=== PATIENT | male | born 1985 | race Caucasian/White ===

== ENCOUNTER 2016-11-23 20:54 | Inpatient (IN) | payer MEDICAID ==
[~2016-11-23] VITALS: Ht 177.8 cm; Wt 85.3 kg
[~2016-11-23 20:54] MED LIST: QUET300T2 PO
[2016-11-23] MEDS ORDERED: INFLUENZA VIRUS VACCINE QVS 2016-17 (3YR+)/PF 60 MCG/0.5 ML SYRINGE IM ONE (21:45)
[2016-11-23 22:09] VITALS: BP 148/81
[2016-11-23] MEDS ORDERED: DIPH25 PO (22:15)
[2016-11-23] MEDS ORDERED: RISP2 PO (22:15)
[2016-11-24] MEDS: LORazepam 2 MG TABLET PO PRN ×2 (00:21→17:27)
[2016-11-24] MEDS: ZOLPIDEM TARTRATE 10 MG TABLET PO PRN (00:21)
[2016-11-24 00:22] VITALS: BP 120/73
[2016-11-24] MEDS ORDERED: LORazepam 2 MG/ML VIAL ONE (00:49)
[2016-11-24] MEDS ORDERED: DiphenhydrAMINE HCL 50 MG/ML VIAL ONE (00:49)
[2016-11-24] MEDS ORDERED: HALOPERIDOL LACTATE 5 MG/ML VIAL ONE (00:50)
[2016-11-24] MEDS ORDERED: LORazepam 2 MG/ML VIAL IM ONE (01:00)
[2016-11-24] MEDS ORDERED: HALOPERIDOL LACTATE 5 MG/ML VIAL IM ONE (01:00)
[2016-11-24] MEDS ORDERED: DiphenhydrAMINE HCL 50 MG/ML VIAL IM ONE (01:00)
[2016-11-24 07:58] LABS: BASOPHILS % (AUTO) 0.6 % (0.0-2.0); EOSINOPHILS % (AUTO) 6.1 % (1.0-6.0); HEMATOCRIT 36.5 % (41-53); HEMOGLOBIN 12.1 g/dL (13.5-17.5); LYMPHOCYTES # (AUTO) 1.8 K/uL (1.0-4.8); LYMPHOCYTES % (AUTO) 18.7 % (22.0-44.0); MEAN CORPUSCULAR HEMOGLOBIN 29.5 pg (26.0-34.0); MEAN CORPUSCULAR HGB CONC 33.3 G/dL (31.0-37.0); MEAN CORPUSCULAR VOLUME 89 fL (80-100); NEUTROPHILS % (AUTO) 63.6 % (40.0-70.0); PLATELET COUNT (AUTO) 235 K/uL (150-450); RED BLOOD CELL COUNT(AUTO) 4.11 MIL/uL (4.50-5.90); RED CELL DISTRIBUTION WIDTH 12.4 % (11.5-14.5); WHITE BLOOD COUNT (AUTO) 9.5 K/uL (4.5-11.0)
[2016-11-24 08:04] LABS: HEMOGLOBIN A1C 5.1 % (4.5-6.2)
[2016-11-24 08:15] VITALS: BP 102/60
[2016-11-24 08:21] LABS: ALANINE AMINOTRANSFERASE 34 U/L (12-78); ALBUMIN 2.8 g/dL (3.4-5.0); ANION GAP 6 mmol/L (8-16); ASPARTATE AMINOTRANSFERASE 26 U/L (15-37); BILIRUBIN,TOTAL 0.3 mg/dL (0.1-1.0); CALCIUM, TOTAL 8.1 mg/dL (8.8-10.5); CARBON DIOXIDE 29 mmol/L (22-29); CHLORIDE 101 mmol/L (98-107); CHOL/HDL RATIO 3.8 (4.2-7.3); CREATININE 0.94 mg/dL (0.60-1.30); GLOMERULAR FILTR. RATE CALC > 60 mL/min (>60); POTASSIUM 3.4 mmol/L (3.5-5.1); SODIUM SERUM 136 mmol/L (136-145); TOTAL PROTEIN, SERUM 6.6 g/dL (6.4-8.2); UREA NITROGEN, BLOOD 13 mg/dL (7-18)
[2016-11-24] MEDS ORDERED: POTASSIUM CHLORIDE 20 MEQ ER TABLET PO ONE (10:15)
[2016-11-24] MEDS ORDERED: IBUPROFEN 400 MG TABLET PO PRN (12:45)
[2016-11-24] MEDS ORDERED: ACETAMINOPHEN 325 MG TABLET PO PRN (12:45)
[2016-11-24 16:45] VITALS: BP 121/69
[2016-11-24] MEDS: FERROUS SULFATE 325 MG EC TABLET PO SCH (17:27)
[2016-11-24] MEDS: OLANZapine 5 MG TABLET PO SCH (22:12)
[2016-11-25 06:22] VITALS: BP 124/73
[2016-11-25] MEDS: FERROUS SULFATE 325 MG EC TABLET PO SCH ×3 (06:52→17:32)
[2016-11-25 08:14] VITALS: BP 114/66
[2016-11-25] MEDS: FLUoxetine HCL 20 MG CAPSULE PO SCH (09:40)
[2016-11-25] MEDS: LORazepam 2 MG TABLET PO PRN (09:41)
[2016-11-25 12:34] LABS: CHOL/HDL RATIO 4.6 (4.2-7.3)
[2016-11-25 17:08] VITALS: BP 111/67
[2016-11-25] MEDS: OLANZapine 5 MG TABLET PO SCH (20:32)
[2016-11-26 00:28] VITALS: BP 97/62
[2016-11-26] MEDS: FERROUS SULFATE 325 MG EC TABLET PO SCH ×3 (06:11→16:30)
[2016-11-26 08:15] VITALS: BP 101/57
[2016-11-26] MEDS: FLUoxetine HCL 20 MG CAPSULE PO SCH (09:33)
[2016-11-26 16:15] VITALS: BP 115/67
[2016-11-26] MEDS: ZOLPIDEM TARTRATE 10 MG TABLET PO PRN (20:58)
[2016-11-26] MEDS: OLANZapine 5 MG TABLET PO SCH (20:59)
[2016-11-27] MEDS: FERROUS SULFATE 325 MG EC TABLET PO SCH ×3 (06:44→17:18)
[2016-11-27 06:53] VITALS: BP 122/86
[2016-11-27 08:15] VITALS: BP 107/58
[2016-11-27] MEDS: FLUoxetine HCL 20 MG CAPSULE PO SCH (09:40)
[2016-11-27 16:00] VITALS: BP 132/80
[2016-11-27] MEDS: LORazepam 2 MG TABLET PO PRN (17:18)
[2016-11-27] MEDS: OLANZapine 5 MG TABLET PO SCH (20:41)
[2016-11-28] MEDS: FERROUS SULFATE 325 MG EC TABLET PO SCH ×3 (06:29→16:47)
[2016-11-28 08:17] LABS: APPEARANCE,URINE CLOUDY (CLEAR); GLUCOSE, URINE (UA) NEGATIVE (NEGATIVE); KETONES,URINE NEGATIVE (NEGATIVE); LEUKOCYTE ESTERASE ,URINE LARGE (NEGATIVE); OCCULT BLOOD,URINE LARGE (NEGATIVE); PH,URINE 6.5 (5.0-8.0); PROTEIN,URINE POS 1+ (NEGATIVE)
[2016-11-28 08:31] VITALS: BP 94/55
[2016-11-28 08:44] LABS: ADD UA MICROSCOPIC YES
[2016-11-28 08:45] LABS: AMORPHOUS SEDIMENT,UR Moderate /LPF (None Seen)
[2016-11-28] MEDS: LORazepam 2 MG TABLET PO PRN (09:39)
[2016-11-28] MEDS: FLUoxetine HCL 20 MG CAPSULE PO SCH (09:39)
[2016-11-28 16:14] VITALS: BP 113/67
[2016-11-28] MEDS: CIPROFLOXACIN HCL 500 MG TABLET PO SCH (16:47)
[2016-11-28] MEDS: OLANZapine 5 MG TABLET PO SCH (20:44)
[2016-11-29] MEDS: FERROUS SULFATE 325 MG EC TABLET PO SCH ×3 (07:01→17:19)
[2016-11-29 07:16] VITALS: BP 102/63
[2016-11-29 08:14] VITALS: BP 118/62
[2016-11-29] MEDS: FLUoxetine HCL 20 MG CAPSULE PO SCH (08:59)
[2016-11-29] MEDS: CIPROFLOXACIN HCL 500 MG TABLET PO SCH ×2 (09:00→17:19)
[2016-11-29] MEDS: LORazepam 2 MG TABLET PO PRN ×2 (09:00→17:20)
[2016-11-29 16:52] VITALS: BP 118/70
[2016-11-29] MEDS: OLANZapine 5 MG TABLET PO SCH (20:46)
[2016-11-30] MEDS: FERROUS SULFATE 325 MG EC TABLET PO SCH ×3 (06:14→16:44)
[2016-11-30 07:07] VITALS: BP 123/74
[2016-11-30 08:15] VITALS: BP 100/54
[2016-11-30] MEDS: FLUoxetine HCL 20 MG CAPSULE PO SCH (09:21)
[2016-11-30] MEDS: CIPROFLOXACIN HCL 500 MG TABLET PO SCH ×2 (09:21→16:44)
[2016-11-30] MEDS: LORazepam 2 MG TABLET PO PRN (14:23)
[2016-11-30 16:18] VITALS: BP 124/75
[2016-11-30] MEDS: OLANZapine 5 MG TABLET PO SCH (20:26)
[2016-12-01 06:44] VITALS: BP 106/62
[2016-12-01] MEDS: FERROUS SULFATE 325 MG EC TABLET PO SCH ×2 (06:44→12:38)
[2016-12-01 08:28] LABS: APPEARANCE,URINE CLEAR (CLEAR); GLUCOSE, URINE (UA) NEGATIVE (NEGATIVE); KETONES,URINE NEGATIVE (NEGATIVE); LEUKOCYTE ESTERASE ,URINE MODERATE (NEGATIVE); OCCULT BLOOD,URINE NEGATIVE (NEGATIVE); PH,URINE 6.5 (5.0-8.0); PROTEIN,URINE NEGATIVE (NEGATIVE)
[2016-12-01 08:37] VITALS: BP 107/69
[2016-12-01 08:42] LABS: ADD UA MICROSCOPIC YES
[2016-12-01] MEDS: CIPROFLOXACIN HCL 500 MG TABLET PO SCH (08:45)
[2016-12-01] MEDS: FLUoxetine HCL 20 MG CAPSULE PO SCH (08:45)
[2016-12-01 09:47] LABS: RBC,URINE 0-2 /HPF (0-2); SQUAMOUS EPITHELIAL CELL,UR Few /LPF (None Seen)
[2016-12-01] MEDS: LORazepam 2 MG TABLET PO PRN (12:38)
[2016-12-01] MEDS ORDERED: FERR-89 PO (13:14)
[2016-12-01] MEDS ORDERED: FLUO-191 PO (13:14)
[2016-12-01] MEDS ORDERED: OLAN5TAB2 PO (13:14)
[2016-12-01] MEDS ORDERED: CIPR-278 PO (13:14)
== END 2016-12-01 14:39 | disposition home or self-care (01) | DRG 751 ==
LOC: EDSTATUS 21:11 → B3A 21:34
PROVIDERS: ADMIT Psychiatry & Neurology Child & Adolescent Psychiatry; ATTEND Psychiatry & Neurology Child & Adolescent Psychiatry
DX: F33.2 Major depressive disorder, recurrent severe without psychotic features (principal); R45.851 Suicidal ideations; F15.20 Other stimulant dependence, uncomplicated; F41.9 Anxiety disorder, unspecified; F60.3 Borderline personality disorder; F25.9 Schizoaffective disorder, unspecified; E87.6 Hypokalemia; D64.9 Anemia, unspecified; F10.10 Alcohol abuse, uncomplicated; Z71.41 Alcohol abuse counseling and surveillance of alcoholic; Z71.51 Drug abuse counseling and surveillance of drug abuser; Z28.21 Immunization not carried out because of patient refusal; Z62.819 Personal history of unspecified abuse in childhood
CPT/HCPCS: 80307; 83036; 84132; 84439; 84443; 87086; 90471; J1200; J1630; J2060

== ENCOUNTER 2017-01-11 14:53 | Inpatient (IN) | payer MEDICAID ==
[~2017-01-11] VITALS: Ht 180.3 cm; Wt 81.6 kg
[~2017-01-11 14:53] MED LIST changes: +CIPR-278 PO; +FERR-89 PO; +FLUO-191 PO; +OLAN5TAB2 PO; -QUET300T2 PO
[2017-01-11] MEDS ORDERED: HALOPERIDOL 5 MG TABLET PO PRN (16:30)
[2017-01-11] MEDS ORDERED: LORazepam 2 MG TABLET PO PRN (16:30)
[2017-01-11] MEDS ORDERED: INFLUENZA VIRUS VACCINE QVS 2016-17 (3YR+)/PF 60 MCG/0.5 ML SYRINGE IM ONE (16:30)
[2017-01-11] MEDS ORDERED: ZOLPIDEM TARTRATE 10 MG TABLET PO PRN (16:30)
[2017-01-11] MEDS ORDERED: DiphenhydrAMINE HCL 50 MG/ML VIAL IM ONE (16:45)
[2017-01-11] MEDS ORDERED: LORazepam 2 MG/ML VIAL IM ONE (16:45)
[2017-01-11] MEDS ORDERED: HALOPERIDOL LACTATE 5 MG/ML VIAL IM ONE (16:45)
[2017-01-11 17:05] VITALS: BP 118/85
[2017-01-12] MEDS: FERROUS SULFATE 325 MG EC TABLET PO SCH ×3 (06:36→16:18)
[2017-01-12 07:15] VITALS: BP 106/77
[2017-01-12 08:39] VITALS: BP 112/62
[2017-01-12 16:00] VITALS: BP 114/65
[2017-01-12] MEDS ORDERED: ACETAMINOPHEN 325 MG TABLET PO PRN (22:30)
[2017-01-12] MEDS ORDERED: IBUPROFEN 400 MG TABLET PO PRN (22:30)
[2017-01-13] MEDS: FERROUS SULFATE 325 MG EC TABLET PO SCH ×3 (06:35→17:05)
[2017-01-13 06:56] VITALS: BP 121/68
[2017-01-13 08:34] LABS: BASOPHILS % (AUTO) 0.4 % (0.0-2.0); HEMATOCRIT 44.5 % (41-53); HEMOGLOBIN 14.7 g/dL (13.5-17.5); LYMPHOCYTES % (AUTO) 25.6 % (22.0-44.0); MEAN CORPUSCULAR HGB CONC 33.1 G/dL (31.0-37.0); MEAN CORPUSCULAR VOLUME 88 fL (80-100); MONOCYTES # (AUTO) 0.5 K/uL (0.1-1.0); MONOCYTES % (AUTO) 6.4 % (2.0-9.0); NEUTROPHILS # (AUTO) 5.2 K/uL (1.8-7.7); NEUTROPHILS % (AUTO) 65.6 % (40.0-70.0); PLATELET COUNT (AUTO) 267 K/uL (150-450); RED BLOOD CELL COUNT(AUTO) 5.08 MIL/uL (4.50-5.90); RED CELL DISTRIBUTION WIDTH 13.8 % (11.5-14.5); WHITE BLOOD COUNT (AUTO) 7.9 K/uL (4.5-11.0)
[2017-01-13 08:45] VITALS: BP 109/62
[2017-01-13 08:50] LABS: HEMOGLOBIN A1C 5.4 % (4.5-6.2)
[2017-01-13 08:55] LABS: ALANINE AMINOTRANSFERASE 26 U/L (12-78); ALBUMIN 3.8 g/dL (3.4-5.0); ANION GAP 6 mmol/L (8-16); ASPARTATE AMINOTRANSFERASE 19 U/L (15-37); BILIRUBIN,TOTAL 0.7 mg/dL (0.1-1.0); CALCIUM, TOTAL 8.5 mg/dL (8.8-10.5); CARBON DIOXIDE 31 mmol/L (22-29); CHLORIDE 101 mmol/L (98-107); CHOL/HDL RATIO 3.4 (4.2-7.3); CREATININE 0.87 mg/dL (0.60-1.30); GLOMERULAR FILTR. RATE CALC > 60 mL/min (>60); POTASSIUM 4.2 mmol/L (3.5-5.1); SODIUM SERUM 138 mmol/L (136-145); THYROID STIMULATING HORMONE 0.76 uIU/mL (0.36-3.74); UREA NITROGEN, BLOOD 10 mg/dL (7-18)
[2017-01-13] MEDS: BENZTROPINE MESYLATE 0.5 MG TABLET PO SCH ×2 (09:12→17:05)
[2017-01-13] MEDS: HALOPERIDOL 5 MG TABLET PO SCH ×2 (09:12→17:05)
[2017-01-13 16:20] VITALS: BP 117/68
[2017-01-14] MEDS: FERROUS SULFATE 325 MG EC TABLET PO SCH ×3 (06:22→17:28)
[2017-01-14 07:07] VITALS: BP 114/60
[2017-01-14] MEDS: BENZTROPINE MESYLATE 0.5 MG TABLET PO SCH ×2 (09:20→17:28)
[2017-01-14] MEDS: HALOPERIDOL 5 MG TABLET PO SCH ×2 (09:20→17:28)
[2017-01-14 09:49] VITALS: BP 116/67
[2017-01-14 16:05] VITALS: BP 119/71
[2017-01-15] MEDS: FERROUS SULFATE 325 MG EC TABLET PO SCH ×3 (06:14→16:40)
[2017-01-15 06:18] VITALS: BP 133/77
[2017-01-15 08:15] VITALS: BP 105/63
[2017-01-15] MEDS: HALOPERIDOL 5 MG TABLET PO SCH ×2 (09:58→16:40)
[2017-01-15] MEDS: BENZTROPINE MESYLATE 0.5 MG TABLET PO SCH ×2 (09:58→16:40)
[2017-01-15 16:04] VITALS: BP 116/70
[2017-01-16] MEDS: FERROUS SULFATE 325 MG EC TABLET PO SCH ×3 (06:14→16:45)
[2017-01-16 06:50] VITALS: BP 104/60
[2017-01-16] MEDS: FLUoxetine HCL 20 MG CAPSULE PO SCH (08:36)
[2017-01-16] MEDS: HALOPERIDOL 5 MG TABLET PO SCH ×2 (08:37→16:45)
[2017-01-16] MEDS: BENZTROPINE MESYLATE 0.5 MG TABLET PO SCH ×2 (08:39→16:45)
[2017-01-16 08:43] VITALS: BP 106/67
[2017-01-16 16:00] VITALS: BP 108/58
[2017-01-17] MEDS: FERROUS SULFATE 325 MG EC TABLET PO SCH ×3 (06:34→17:04)
[2017-01-17 06:54] VITALS: BP 118/71
[2017-01-17 08:13] VITALS: BP 100/60
[2017-01-17] MEDS: FLUoxetine HCL 20 MG CAPSULE PO SCH (10:03)
[2017-01-17] MEDS: BENZTROPINE MESYLATE 0.5 MG TABLET PO SCH ×2 (10:04→17:04)
[2017-01-17] MEDS: HALOPERIDOL 5 MG TABLET PO SCH ×2 (10:04→17:04)
[2017-01-17 16:00] VITALS: BP 102/67
[2017-01-18] MEDS: FERROUS SULFATE 325 MG EC TABLET PO SCH ×2 (06:27→13:16)
[2017-01-18 07:06] VITALS: BP 115/75
[2017-01-18 08:27] VITALS: BP 103/64
[2017-01-18] MEDS: FLUoxetine HCL 20 MG CAPSULE PO SCH (10:08)
[2017-01-18] MEDS: BENZTROPINE MESYLATE 0.5 MG TABLET PO SCH (10:08)
[2017-01-18] MEDS: HALOPERIDOL 5 MG TABLET PO SCH (10:09)
[2017-01-18] MEDS ORDERED: BENZ0.5T6 PO (10:41)
[2017-01-18] MEDS ORDERED: HALO.5 PO (10:41)
[2017-01-18] MEDS ORDERED: FLUO20CA30 PO (10:41)
== END 2017-01-18 13:49 | disposition home or self-care (01) | DRG 750 ==
LOC: B3A 16:27
PROVIDERS: ADMIT Psychiatry & Neurology Psychiatry; ATTEND Psychiatry & Neurology Psychiatry
DX: F25.0 Schizoaffective disorder, bipolar type (principal); R45.851 Suicidal ideations; F15.20 Other stimulant dependence, uncomplicated; D64.9 Anemia, unspecified; F17.210 Nicotine dependence, cigarettes, uncomplicated; Z62.819 Personal history of unspecified abuse in childhood; F10.10 Alcohol abuse, uncomplicated; Z71.41 Alcohol abuse counseling and surveillance of alcoholic; Z59.0 Homelessness; Z28.21 Immunization not carried out because of patient refusal
CPT/HCPCS: 83036; 84439; 84443; 90471; J1200; J1630; J2060

== ENCOUNTER 2017-01-23 02:26 | Emergency (ER) | payer MEDICAID, OTHER ==
[~2017-01-23] VITALS: Ht 177.8 cm; Wt 84.1 kg
[~2017-01-23 02:26] MED LIST changes: +BENZ0.5T6 PO; -CIPR-278 PO; -FERR-89 PO; +FERS325 PO; +FLUO20CA30 PO; +HALO.5 PO; -OLAN5TAB2 PO
[2017-01-23 04:03] VITALS: BP 123/80
== END 2017-01-23 04:05 | disposition home or self-care (01) ==
LOC: EMS 02:27
DX: K40.90 Unilateral inguinal hernia, without obstruction or gangrene, not specified as recurrent (principal); F20.0 Paranoid schizophrenia; F31.9 Bipolar disorder, unspecified; F17.200 Nicotine dependence, unspecified, uncomplicated
CPT/HCPCS: 99281; 99406

== ENCOUNTER 2018-02-27 16:46 | Inpatient (IN) | payer MEDICAID, OTHER ==
[~2018-02-27] VITALS: Ht 180.3 cm; Wt 85.7 kg
[~2018-02-27 16:46] MED LIST changes: +BENZ0.5T44 PO; -BENZ0.5T6 PO; +FERR-89 PO; -FERS325 PO; -FLUO-191 PO
[2018-02-27 18:57] LABS: BASOPHILS % (AUTO) 0.7 % (0.0-2.0); EOSINOPHILS % (AUTO) 3.8 % (1.0-6.0); HEMATOCRIT 40.8 % (41-53); HEMOGLOBIN 14.4 g/dL (13.5-17.5); LYMPHOCYTES # (AUTO) 2.3 K/uL (1.0-4.8); LYMPHOCYTES % (AUTO) 39.7 % (22.0-44.0); MEAN CORPUSCULAR HEMOGLOBIN 31.4 pg (26.0-34.0); MEAN CORPUSCULAR HGB CONC 35.3 G/dL (31.0-37.0); MEAN CORPUSCULAR VOLUME 89 fL (80-100); MONOCYTES # (AUTO) 0.5 K/uL (0.1-1.0); MONOCYTES % (AUTO) 8.7 % (2.0-9.0); NEUTROPHILS # (AUTO) 2.7 K/uL (1.8-7.7); NEUTROPHILS % (AUTO) 47.1 % (40.0-70.0); PLATELET COUNT (AUTO) 220 K/uL (150-450); RED BLOOD CELL COUNT(AUTO) 4.59 MIL/uL (4.50-5.90)
[2018-02-27 19:07] LABS: ANION GAP 12 mmol/L (8-16); CALCIUM, TOTAL 8.8 mg/dL (8.8-10.5); CARBON DIOXIDE 31 mmol/L (22-29); CHLORIDE 101 mmol/L (98-107); CREATININE 1.09 mg/dL (0.60-1.30); GLOMERULAR FILTR. RATE CALC > 60 mL/min (>60); GLUCOSE,RANDOM 82 mg/dL (70-110); POTASSIUM 4.1 mmol/L (3.5-5.1); SODIUM SERUM 144 mmol/L (136-145); UREA NITROGEN, BLOOD 14 mg/dL (7-18)
[2018-02-27 19:11] LABS: ALANINE AMINOTRANSFERASE 30 U/L (12-78); ALBUMIN 3.8 g/dL (3.4-5.0); ALKALINE PHOSPHATASE 77 U/L (46-116); ASPARTATE AMINOTRANSFERASE 20 U/L (15-37); BILIRUBIN,TOTAL 0.3 mg/dL (0.1-1.0); TOTAL PROTEIN, SERUM 7.3 g/dL (6.4-8.2)
[2018-02-27] MEDS ORDERED: ZOLPIDEM TARTRATE 10 MG TABLET PO PRN (21:00)
[2018-02-28 11:21] VITALS: BP 119/75
[2018-02-28] MEDS ORDERED: IBUPROFEN 400 MG TABLET PO PRN (12:15)
[2018-02-28] MEDS ORDERED: ACETAMINOPHEN 325 MG TABLET PO PRN (12:15)
[2018-02-28 16:13] VITALS: BP 111/67
[2018-02-28] MEDS: FERROUS SULFATE 325 MG EC TABLET PO SCH (17:14)
[2018-02-28] MEDS: LORazepam 2 MG TABLET PO PRN (20:06)
[2018-02-28] MEDS: HALOPERIDOL 5 MG TABLET PO SCH (20:06)
[2018-03-01 06:21] VITALS: BP 106/65
[2018-03-01] MEDS: FERROUS SULFATE 325 MG EC TABLET PO SCH ×3 (06:21→17:08)
[2018-03-01 08:09] VITALS: BP 117/76
[2018-03-01] MEDS: DIVALPROEX SODIUM 500 MG DR TABLET PO SCH ×2 (08:33→17:08)
[2018-03-01] MEDS: CITALOPRAM HYDROBROMIDE 20 MG TABLET PO SCH (08:33)
[2018-03-01] MEDS: LORazepam 2 MG TABLET PO PRN ×2 (08:34→17:08)
[2018-03-01 09:58] LABS: HEMOGLOBIN A1C 5.1 % (4.5-6.2)
[2018-03-01 10:08] LABS: CHOL/HDL RATIO 3.7 (4.2-7.3); THYROID STIMULATING HORMONE 0.48 uIU/mL (0.36-3.74)
[2018-03-01 16:00] VITALS: BP 112/65
[2018-03-01] MEDS: HALOPERIDOL 5 MG TABLET PO SCH (20:42)
[2018-03-02] MEDS: FERROUS SULFATE 325 MG EC TABLET PO SCH ×3 (06:20→17:05)
[2018-03-02 07:00] VITALS: BP 102/68
[2018-03-02] MEDS: DIVALPROEX SODIUM 500 MG DR TABLET PO SCH ×2 (08:03→17:05)
[2018-03-02] MEDS: CITALOPRAM HYDROBROMIDE 20 MG TABLET PO SCH (08:03)
[2018-03-02 08:20] VITALS: BP 110/63
[2018-03-02 16:05] VITALS: BP 104/62
[2018-03-02] MEDS: LORazepam 2 MG TABLET PO PRN (17:05)
[2018-03-02] MEDS: HALOPERIDOL 5 MG TABLET PO SCH (20:43)
[2018-03-03] MEDS: FERROUS SULFATE 325 MG EC TABLET PO SCH ×3 (06:44→17:23)
[2018-03-03 06:48] VITALS: BP 105/68
[2018-03-03] MEDS: CITALOPRAM HYDROBROMIDE 20 MG TABLET PO SCH (08:18)
[2018-03-03] MEDS: HALOPERIDOL 5 MG TABLET PO PRN (08:18)
[2018-03-03] MEDS: DIVALPROEX SODIUM 500 MG DR TABLET PO SCH ×2 (08:18→17:23)
[2018-03-03] MEDS: LORazepam 2 MG TABLET PO PRN (08:18)
[2018-03-03 08:47] VITALS: BP 106/56
[2018-03-03 16:24] VITALS: BP 101/60
[2018-03-03] MEDS: HALOPERIDOL 5 MG TABLET PO SCH (20:43)
[2018-03-04] MEDS: FERROUS SULFATE 325 MG EC TABLET PO SCH ×3 (06:17→16:41)
[2018-03-04 06:26] VITALS: BP 102/68
[2018-03-04 08:04] VITALS: BP 107/64
[2018-03-04] MEDS: CITALOPRAM HYDROBROMIDE 20 MG TABLET PO SCH (08:13)
[2018-03-04] MEDS: DIVALPROEX SODIUM 500 MG DR TABLET PO SCH ×2 (08:13→16:41)
[2018-03-04 16:05] VITALS: BP 104/63
[2018-03-04] MEDS: LORazepam 2 MG TABLET PO PRN (16:42)
[2018-03-04] MEDS: HALOPERIDOL 5 MG TABLET PO SCH (20:31)
[2018-03-05] MEDS: FERROUS SULFATE 325 MG EC TABLET PO SCH ×3 (06:39→17:06)
[2018-03-05 06:41] VITALS: BP 105/62
[2018-03-05 08:52] VITALS: BP 105/58
[2018-03-05] MEDS: HALOPERIDOL 5 MG TABLET PO PRN ×2 (09:09→17:07)
[2018-03-05] MEDS: DIVALPROEX SODIUM 500 MG DR TABLET PO SCH ×2 (09:09→17:07)
[2018-03-05] MEDS: CITALOPRAM HYDROBROMIDE 20 MG TABLET PO SCH (09:09)
[2018-03-05] MEDS: LORazepam 2 MG TABLET PO PRN ×2 (09:09→17:07)
[2018-03-05 16:02] VITALS: BP 112/64
[2018-03-05] MEDS: HALOPERIDOL 5 MG TABLET PO SCH (20:32)
[2018-03-06 03:16] VITALS: BP 118/65
[2018-03-06] MEDS: FERROUS SULFATE 325 MG EC TABLET PO SCH ×3 (06:33→16:43)
[2018-03-06 08:18] VITALS: BP 102/61
[2018-03-06] MEDS: CITALOPRAM HYDROBROMIDE 20 MG TABLET PO SCH (09:17)
[2018-03-06] MEDS: DIVALPROEX SODIUM 500 MG DR TABLET PO SCH ×2 (09:17→16:43)
[2018-03-06 16:28] VITALS: BP 109/60
[2018-03-06] MEDS: LORazepam 2 MG TABLET PO PRN (16:43)
[2018-03-06] MEDS: HALOPERIDOL 5 MG TABLET PO SCH (20:37)
[2018-03-07 06:18] VITALS: BP 98/69
[2018-03-07] MEDS: FERROUS SULFATE 325 MG EC TABLET PO SCH ×3 (06:40→16:25)
[2018-03-07 08:16] VITALS: BP 102/62
[2018-03-07 08:29] LABS: AMPHET/METH SCREEN,URINE NEGATIVE (NEGATIVE); BARBITURATE SCREEN, URINE NEGATIVE (NEGATIVE); BENZODIAZEPINES SCREEN,URINE NEGATIVE (NEGATIVE); CANNABINOID SCREEN,URINE NEGATIVE (NEGATIVE); COCAINE SCREEN,URINE NEGATIVE (NEGATIVE); METHADONE SCREEN, URINE NEGATIVE (NEGATIVE); OPIATE SCREEN,URINE NEGATIVE (NEGATIVE)
[2018-03-07 08:30] LABS: PHENCYCLIDINE SCREEN,URINE NEGATIVE (NEGATIVE)
[2018-03-07] MEDS: LORazepam 2 MG TABLET PO PRN (08:36)
[2018-03-07] MEDS: DIVALPROEX SODIUM 500 MG DR TABLET PO SCH ×2 (08:36→16:25)
[2018-03-07] MEDS: CITALOPRAM HYDROBROMIDE 20 MG TABLET PO SCH (08:36)
[2018-03-07 09:42] LABS: APPEARANCE,URINE CLEAR (CLEAR); BILIRUBIN,URINE NEGATIVE (NEGATIVE); GLUCOSE, URINE (UA) NEGATIVE (NEGATIVE); KETONES,URINE TRACE mg/dL (NEGATIVE); LEUKOCYTE ESTERASE ,URINE NEGATIVE (NEGATIVE); NITRATE,URINE NEGATIVE (NEGATIVE); OCCULT BLOOD,URINE NEGATIVE (NEGATIVE); PH,URINE 7.5 (5.0-8.0); PROTEIN,URINE NEGATIVE (NEGATIVE); UROBILINOGEN,URINE 0.2 mg/dL (<=1.0)
[2018-03-07 16:05] VITALS: BP 110/68
[2018-03-07] MEDS: HALOPERIDOL 5 MG TABLET PO SCH (20:26)
[2018-03-08] MEDS: FERROUS SULFATE 325 MG EC TABLET PO SCH ×2 (06:03→12:12)
[2018-03-08 06:36] VITALS: BP 100/73
[2018-03-08 08:37] VITALS: BP 100/60
[2018-03-08] MEDS: DIVALPROEX SODIUM 500 MG DR TABLET PO SCH (09:33)
[2018-03-08] MEDS: CITALOPRAM HYDROBROMIDE 20 MG TABLET PO SCH (09:33)
[2018-03-08] MEDS ORDERED: HALO5TAB2 PO (12:47)
[2018-03-08] MEDS ORDERED: DIVA500T35 PO (12:47)
[2018-03-08] MEDS ORDERED: CITA-106 PO (12:48)
== END 2018-03-08 13:36 | disposition home or self-care (01) | DRG 750 ==
LOC: EMS 16:47 → B3A 02-28 07:18
PROVIDERS: ADMIT Psychiatry & Neurology Psychiatry; ATTEND Psychiatry & Neurology Psychiatry
DX: F25.9 Schizoaffective disorder, unspecified (principal); R45.851 Suicidal ideations; Z91.14 Patient's other noncompliance with medication regimen; G47.00 Insomnia, unspecified; F32.9 Major depressive disorder, single episode, unspecified; F10.10 Alcohol abuse, uncomplicated; Y90.9 Presence of alcohol in blood, level not specified
CPT/HCPCS: 83036; 84443; 99285; G0480

== ENCOUNTER 2020-08-09 17:19 | Inpatient (IN) | payer MEDICAID ==
[~2020-08-09] VITALS: Ht 180.3 cm; Wt 104.4 kg
[~2020-08-09 17:19] MED LIST changes: -BENZ0.5T44 PO; +CITA-144 PO; +DIVA-112 PO; -FLUO20CA30 PO; -HALO.5 PO; +HALO5TAB2 PO; +PALI78DI IM
[2020-08-09 17:48] LABS: BASOPHILS % (AUTO) 0.5 % (0.0-2.0); EOSINOPHILS % (AUTO) 1.8 % (1.0-6.0); HEMATOCRIT 37.9 % (41-53); HEMOGLOBIN 12.9 g/dL (13.5-17.5); LYMPHOCYTES # (AUTO) 2.2 K/uL (1.0-4.8); LYMPHOCYTES % (AUTO) 32.8 % (22.0-44.0); MEAN CORPUSCULAR HEMOGLOBIN 30.4 pg (26.0-34.0); MEAN CORPUSCULAR HGB CONC 34.1 G/dL (31.0-37.0); MEAN CORPUSCULAR VOLUME 89 fL (80-100); MONOCYTES # (AUTO) 0.5 K/uL (0.1-1.0); MONOCYTES % (AUTO) 7.9 % (2.0-9.0); NEUTROPHILS # (AUTO) 3.9 K/uL (1.8-7.7); PLATELET COUNT (AUTO) 211 K/uL (150-450); RED BLOOD CELL COUNT(AUTO) 4.25 MIL/uL (4.50-5.90); RED CELL DISTRIBUTION WIDTH 13.3 % (11.5-14.5)
[2020-08-09 17:58] LABS: ANION GAP 10 mmol/L (8-16); CALCIUM, TOTAL 8.9 mg/dL (8.8-10.5); CARBON DIOXIDE 26 mmol/L (22-29); CHLORIDE 102 mmol/L (98-107); CREATININE 0.98 mg/dL (0.60-1.30); GLOMERULAR FILTR. RATE CALC > 60 mL/min (>60); GLUCOSE,RANDOM 111 mg/dL (70-110); POTASSIUM 3.7 mmol/L (3.5-5.1); SODIUM SERUM 138 mmol/L (136-145); UREA NITROGEN, BLOOD 10 mg/dL (7-18)
[2020-08-09 18:05] LABS: ALANINE AMINOTRANSFERASE 23 U/L (12-78); ALBUMIN 3.8 g/dL (3.4-5.0); ALKALINE PHOSPHATASE 72 U/L (46-116); ASPARTATE AMINOTRANSFERASE 14 U/L (15-37); BILIRUBIN,TOTAL 0.4 mg/dL (0.1-1.0); TOTAL PROTEIN, SERUM 6.9 g/dL (6.4-8.2)
[2020-08-09 18:53] LABS: AMPHET/METH SCREEN,URINE NEGATIVE (NEGATIVE); BARBITURATE SCREEN, URINE NEGATIVE (NEGATIVE); BENZODIAZEPINES SCREEN,URINE NEGATIVE (NEGATIVE); CANNABINOID SCREEN,URINE NEGATIVE (NEGATIVE); COCAINE SCREEN,URINE NEGATIVE (NEGATIVE); METHADONE SCREEN, URINE NEGATIVE (NEGATIVE); OPIATE SCREEN,URINE NEGATIVE (NEGATIVE)
[2020-08-09 18:54] LABS: PHENCYCLIDINE SCREEN,URINE NEGATIVE (NEGATIVE)
[2020-08-09] MEDS ORDERED: ZOLPIDEM TARTRATE 10 MG TABLET PO PRN (20:30)
[2020-08-09] MEDS ORDERED: ACETAMINOPHEN 325 MG TABLET PO PRN (20:30)
[2020-08-09] MEDS ORDERED: HydrOXYzine PAMOATE 50 MG CAPSULE PO PRN (20:30)
[2020-08-09] MEDS ORDERED: MAGNESIUM HYDROXIDE SUSPENSION 30 ML UDCUP PO PRN (20:30)
[2020-08-09] MEDS ORDERED: LOPERAMIDE HCL 2 MG CAPSULE PO PRN (20:30)
[2020-08-09] MEDS ORDERED: TUBERCULIN, PURIFIED PROTEIN DERIVATIVE 5 TU/0.1 ML SYRINGE ID ONE (20:30)
[2020-08-09] MEDS ORDERED: MAG HYDROX/AL HYDROX/SIMETH ES 30 ML SUSPENSION UDCUP PO PRN (20:30)
[2020-08-09] MEDS ORDERED: GuaiFENesin/D-METHORPHAN [SUGAR-FREE] 200-20MG/10 ML SYRUP UDCUP PO PRN (20:30)
[2020-08-09] MEDS ORDERED: PROMETHAZINE HCL 25 MG TABLET PO PRN (20:30)
[2020-08-09] MEDS ORDERED: OLANZapine 5 MG RAPDIS TABLET PO PRN (20:30)
[2020-08-09 20:36] LABS: COVID AG,FIA SOURCE NASOPHARYNGEAL
[2020-08-09] MEDS: OLANZapine 5 MG RAPDIS TABLET PO SCH (21:34)
[2020-08-10 00:36] VITALS: BP 113/76
[2020-08-10] MEDS ORDERED: INFLUENZA VIRUS VACCINE QVS 2020-21 (6MO+)/PF 60 MCG/0.5 ML SYRINGE IM ONE (01:15)
[2020-08-10] MEDS: THIAMINE 100 MG TABLET PO SCH ×3 (01:24→16:17)
[2020-08-10] MEDS: MULTIVITAMINS WITH MINERALS, THERAPEUTIC TABLET PO SCH (08:30)
[2020-08-10] MEDS: NALTREXONE HCL 50 MG TABLET PO SCH (08:30)
[2020-08-10] MEDS: LORazepam 2 MG TABLET PO PRN (08:30)
[2020-08-10] MEDS: FLUoxetine HCL 20 MG CAPSULE PO SCH (08:30)
[2020-08-10] MEDS: OMEGA-3/DHA/EPA/FISH OIL 1,000 MG CAPSULE PO SCH (08:30)
[2020-08-10] MEDS: FOLIC ACID 1 MG TABLET PO SCH (08:30)
[2020-08-10 16:53] VITALS: BP 95/58
[2020-08-10] MEDS: OLANZapine 5 MG RAPDIS TABLET PO SCH (20:35)
[2020-08-11 04:15] VITALS: BP 110/60
[2020-08-11 08:24] VITALS: BP 102/65
[2020-08-11] MEDS: THIAMINE 100 MG TABLET PO SCH ×2 (08:36→16:43)
[2020-08-11] MEDS: MULTIVITAMINS WITH MINERALS, THERAPEUTIC TABLET PO SCH (08:36)
[2020-08-11] MEDS: FOLIC ACID 1 MG TABLET PO SCH (08:36)
[2020-08-11] MEDS: FLUoxetine HCL 20 MG CAPSULE PO SCH (08:36)
[2020-08-11] MEDS: OMEGA-3/DHA/EPA/FISH OIL 1,000 MG CAPSULE PO SCH (08:36)
[2020-08-11] MEDS: NALTREXONE HCL 50 MG TABLET PO SCH (08:36)
[2020-08-11] MEDS ORDERED: NALT50TA PO (13:47)
[2020-08-11] MEDS ORDERED: FLUO-191 PO (13:47)
[2020-08-11] MEDS ORDERED: OLAN5TAB30 PO (13:47)
[2020-08-11] MEDS ORDERED: OMEG-135 PO (13:47)
[2020-08-11 16:07] VITALS: BP 102/60
[2020-08-11] MEDS: LORazepam 2 MG TABLET PO PRN (16:42)
[2020-08-11] MEDS ORDERED: OLANZapine 10 MG RAPDIS TABLET PO SCH (21:00)
[2020-08-12 04:01] VITALS: BP 105/62
[2020-08-12 08:04] LABS: CHOL/HDL RATIO 4.6 (4.2-7.3); FREE T4 (FREE THYROXINE) 1.19 ng/dL (0.76-1.46); THYROID STIMULATING HORMONE 0.42 uIU/mL (0.36-3.74)
[2020-08-12 08:15] VITALS: BP 90/60
[2020-08-12] MEDS: FLUoxetine HCL 20 MG CAPSULE PO SCH (08:20)
[2020-08-12] MEDS: FOLIC ACID 1 MG TABLET PO SCH (08:20)
[2020-08-12] MEDS: MULTIVITAMINS WITH MINERALS, THERAPEUTIC TABLET PO SCH (08:20)
[2020-08-12] MEDS: THIAMINE 100 MG TABLET PO SCH (08:20)
[2020-08-12] MEDS: NALTREXONE HCL 50 MG TABLET PO SCH (08:20)
[2020-08-12] MEDS: OMEGA-3/DHA/EPA/FISH OIL 1,000 MG CAPSULE PO SCH (08:20)
[2020-08-12 10:50] VITALS: BP 108/65
== END 2020-08-12 12:15 | disposition home or self-care (01) | DRG 750 ==
LOC: EMS 17:19 → B3A 20:30
PROVIDERS: ADMIT Psychiatry & Neurology Psychiatry; ATTEND Psychiatry & Neurology Psychiatry
DX: F25.0 Schizoaffective disorder, bipolar type (principal); D64.9 Anemia, unspecified; Z62.810 Personal history of physical and sexual abuse in childhood; Z55.9 Problems related to education and literacy, unspecified; Z59.9 Problem related to housing and economic circumstances, unspecified; Z65.3 Problems related to other legal circumstances
CPT/HCPCS: 84439; 84443; 87426; 90686; G0480

== ENCOUNTER 2020-11-12 11:52 | Emergency (ER) | payer MEDICAID ==
[~2020-11-12] VITALS: Ht 180.3 cm; Wt 95.5 kg
[~2020-11-12 11:52] MED LIST changes: -CITA-144 PO; -DIVA-112 PO; -FERR-89 PO; +FLUO-191 PO; -HALO5TAB2 PO; +NALT50TA PO; +OLAN5TAB30 PO; +OMEG-135 PO; -PALI78DI IM
[2020-11-12] MEDS ORDERED: ONDANSETRON HCL 4 MG TABLET PO ONE (12:30)
[2020-11-12 13:28] LABS: BASOPHILS % (AUTO) 0.4 % (0.0-2.0); EOSINOPHILS % (AUTO) 0.3 % (1.0-6.0); HEMATOCRIT 43.5 % (41-53); HEMOGLOBIN 14.3 g/dL (13.5-17.5); LYMPHOCYTES # (AUTO) 1.7 K/uL (1.0-4.8); LYMPHOCYTES % (AUTO) 22.5 % (22.0-44.0); MEAN CORPUSCULAR HEMOGLOBIN 29.1 pg (26.0-34.0); MEAN CORPUSCULAR VOLUME 88 fL (80-100); MONOCYTES # (AUTO) 0.5 K/uL (0.1-1.0); MONOCYTES % (AUTO) 6.8 % (2.0-9.0); NEUTROPHILS # (AUTO) 5.3 K/uL (1.8-7.7); PLATELET COUNT (AUTO) 273 K/uL (150-450); RED BLOOD CELL COUNT(AUTO) 4.94 MIL/uL (4.50-5.90); RED CELL DISTRIBUTION WIDTH 13.1 % (11.5-14.5)
[2020-11-12 13:30] LABS: COVID AG,FIA SOURCE NASOPHARYNGEAL
[2020-11-12] MEDS ORDERED: SODIUM CHLORIDE 0.9% 1,000 ML IV ONE (13:30)
[2020-11-12] MEDS ORDERED: SODIUM CHLORIDE 0.9% 0 ML ONE (13:37)
[2020-11-12] MEDS ORDERED: IOVERSOL 350 MG/ML 100 ML VIAL ONE (13:37)
[2020-11-12 13:38] LABS: ANION GAP 7 mmol/L (8-16); CALCIUM, TOTAL 9.5 mg/dL (8.8-10.5); CARBON DIOXIDE 30 mmol/L (22-29); CHLORIDE 100 mmol/L (98-107); CREATININE 1.03 mg/dL (0.60-1.30); GLOMERULAR FILTR. RATE CALC > 60 mL/min (>60); GLUCOSE,RANDOM 100 mg/dL (70-110); POTASSIUM 4.6 mmol/L (3.5-5.1); SODIUM SERUM 137 mmol/L (136-145); UREA NITROGEN, BLOOD 15 mg/dL (7-18)
[2020-11-12 13:42] LABS: AMPHET/METH SCREEN,URINE POSITIVE (NEGATIVE); APPEARANCE,URINE CLEAR (CLEAR); BARBITURATE SCREEN, URINE NEGATIVE (NEGATIVE); BENZODIAZEPINES SCREEN,URINE NEGATIVE (NEGATIVE); CANNABINOID SCREEN,URINE NEGATIVE (NEGATIVE); COCAINE SCREEN,URINE NEGATIVE (NEGATIVE); GLUCOSE, URINE (UA) NEGATIVE (NEGATIVE); KETONES,URINE TRACE mg/dL (NEGATIVE); LEUKOCYTE ESTERASE ,URINE NEGATIVE (NEGATIVE); METHADONE SCREEN, URINE NEGATIVE (NEGATIVE); NITRATE,URINE NEGATIVE (NEGATIVE); OCCULT BLOOD,URINE TRACE (NEGATIVE); OPIATE SCREEN,URINE NEGATIVE (NEGATIVE); PROTEIN,URINE POS 1+ (NEGATIVE)
[2020-11-12 13:44] LABS: ALANINE AMINOTRANSFERASE 23 U/L (12-78); ALBUMIN 4.2 g/dL (3.4-5.0); ALKALINE PHOSPHATASE 87 U/L (46-116); ASPARTATE AMINOTRANSFERASE 13 U/L (15-37); BILIRUBIN,TOTAL 0.6 mg/dL (0.1-1.0); LIPASE 66 U/L (73-393); TOTAL PROTEIN, SERUM 8.5 g/dL (6.4-8.2)
[2020-11-12 13:46] LABS: BILIRUBIN,URINE PRELIM. POSITIVE (NEGATIVE); PHENCYCLIDINE SCREEN,URINE NEGATIVE (NEGATIVE)
[2020-11-12 14:32] LABS: RBC,URINE 0-2 /HPF (0-2); WBC,URINE 0-2 /HPF (0-5)
[2020-11-12 14:33] LABS: BACTERIA,URINE None Seen /HPF (None Seen)
[2020-11-12 15:00] VITALS: BP 137/63
[2020-11-12] MEDS ORDERED: OLANZapine 5 MG TABLET PO ONE (15:15)
== END 2020-11-12 15:45 | disposition home or self-care (01) ==
LOC: EMS 11:58
DX: F20.9 Schizophrenia, unspecified (principal); R11.2 Nausea with vomiting, unspecified; Z20.822 Contact with and (suspected) exposure to COVID-19
CPT/HCPCS: 36415; 80053; 80307; 81001; 83690; 85025; 87426; 93005; 96360; 99284; G0480; Q0162; J7050

== ENCOUNTER 2021-06-12 11:52 | Emergency (ER) | payer MEDICAID ==
[~2021-06-12] VITALS: Ht 180.3 cm; Wt 101.8 kg
[2021-06-12 12:02] VITALS: BP 136/74
[2021-06-12] MEDS ORDERED: ACETAMINOPHEN 500 MG TABLET PO ONE (14:15)
[2021-06-12 14:39] LABS: COVID AG,FIA SOURCE NASOPHARYNGEAL
== END 2021-06-12 15:39 | disposition home or self-care (01) ==
LOC: EMS 11:52
DX: R05 Cough (principal); R51.9 Headache, unspecified; R06.02 Shortness of breath; Z20.822 Contact with and (suspected) exposure to COVID-19
CPT/HCPCS: 71045; 87426; 99284; U0003